=== PATIENT | male | born 2000 | race Caucasian/White ===

== ENCOUNTER 2018-03-06 16:58 | Emergency (ER) | payer OTHER ==
[~2018-03-06] VITALS: Ht 185.4 cm; Wt 97.0 kg
[2018-03-06 17:40] VITALS: BP 116/81
[2018-03-06] MEDS ORDERED: TETanus/Pertussis (Acell)/Diphther VAC/PF (Tdap-Adult) 0.5ml syringe IM ONE (18:50)
[2018-03-06] MEDS ORDERED: bacitracin 15gm ointment TP ONE (18:50)
[2018-03-06] MEDS ORDERED: ibuprofen 200mg tablet PO ONE (18:50)
[2018-03-06] MEDS ORDERED: BACI1PAC7 TP (18:53)
[2018-03-06] MEDS ORDERED: IBUP-1985 PO (18:53)
== END 2018-03-06 19:07 | disposition home or self-care (01) ==
LOC: ER 16:58
DX: T23.272A Burn of second degree of left wrist, initial encounter (principal); Z79.899 Other long term (current) drug therapy; X10.2XXA Contact with fats and cooking oils, initial encounter; Y93.89 Activity, other specified; Y92.89 Other specified places as the place of occurrence of the external cause; Y99.8 Other external cause status
CPT/HCPCS: 16020; 90471; 90715; 99284; A6255; A6446; A6449